=== PATIENT | male | born 1965 | race Caucasian/White ===

== ENCOUNTER 2018-01-27 09:57 | Outpatient (CLI) | payer BC ==
[~2018-01-27] VITALS: Ht 203.2 cm; Wt 159.1 kg
--- NOTE | ~2018-01-27 | HEMODYNAMI ---
PATIENT:JULIANNE SHETH MEDICAL RECORD: [id number] : 63 LOCATION:[facility] ADMISSION DATE: 01/27/18 Generatedon:01/27/201813:19 Patient name: JULIANNE SHETH Patient #: [id number] SSN: : 1965 Date of study: 01/27/2018 Page: Of Hemodynamic Procedure Report Patient Data Patient Demographics Procedure consent was obtained First Name: JULIANNE Gender: Male Last Name: DOMENIC : 1965 Patient #: [id number] Age: 52 year(s) Race: Unknown Additional ID: [id number] Contact details Address: [address] [place] [address] State: [place] City: [place] Zip code: [address] Past Medical History Allergies: No known allergies Admission Admission Data Admission Date: 01/27/2018 Admission Time: 9:57 Height (in.): 79.92 BSA: 2.92 (m2) Height (cm.): 203 BMI: 38.58 (kg/m2) Weight (lbs.): 350.54 Weight (kg.): 159 Lab Results Lab Result Date: 01/27/2018 Lab Result Time: 0:00 Biochemistry Name Units Result Min Max BUN mg/dl 10 --(-*--)-- 7 18 Creatinine mg/dl 1.2 --(---*)-- 0.6 1.3 CBC Name Units Result Min Max Hemoglobin g/dl 12.6 -*(----)-- 13.5 17.5 Procedure Procedure Types Cath Procedure Diagnostic Procedure LHC LHC w/Coronaries Procedure Description Procedure Date Procedure Date: 01/27/2018 Procedure Start Time: 13:03 Procedure End Time: 13:14 Procedure Staff Name Function Bartolo Fitch MD Performing Physician Barby Lopez RT Monitor Jasbir Chappell RN Nurse Elaine Reese RT Scrub Procedure Data Cath Procedure Fluoroscopy Diagnostic fluoroscopy Total fluoroscopy Time: 2.6 time: 2.6 min min Diagnostic fluoroscopy Total fluoroscopy dose: 973 dose: 973 mGy mGy Contrast Material Contrast Material Type Amount (ml) Isovue 300 76 Entry Location Entry Primary Successful Side Size Upsize Upsize Entry Closure Succes sful Closure Location (Fr) 1 (Fr) 2 (Fr) Remarks Device Remarks Femoral Right 5 Fr Exoseal artery Estimated blood loss: 10 ml Diagnostic catheters Device Type Used For End Catheter Placement MULTIPACK JL 4.0 5Fr Procedure catheter MULTIPACK 3DRC 5Fr Procedure catheter MULTIPACK Pigtail 5 Fr Procedure catheter Procedure Complications No complications Procedure Medications Medication Administration Route Dosage 0.9% NaCl I.V. 100 ml/hr Oxygen etCO2 Nasal cannula 2 l/min Heparin Flush Bag added to field 2 bags (1000units/500ml NS) Lidocaine 2% added to field 20 Versed I.V. 2 mg Fentanyl I.V. 100 mcg Hemodynamics Rest BSA: 2.92 (m2) O2 Consumption: Estimated: 404.57 (ml/min) O2 Consumption indexed : Estimated:138.55 (ml/min/m) Heart Rate: 122 (bpm) Pressure Samples Time Site Value (mmHg) Purpose Heart Use Rate(bpm) 13:11 LV 119/12,17 Snapshot 122 Gradients Valve Time Site Site Mean SEP/DFP Peak To Heart Use 1 2 (mmHg) (sec/min) Peak Rate (mmHg) (bpm) Aortic 13:12 LV AO 103 Snapshots Pre Cath Intra NCS Post Cath Vital Signs Time Heart Resp SPO2 etCO2 NIBP (mmHg) Rhythm Pain Sedation Rate (ipm) (%) (mmHg) Status Level (bpm) 12:55:47 98 15 100 33.2 131/104(118) NSR 0 (11) 10(A) , No pain 12:59:55 93 14 98 40 134/102(113) NSR 0 (11) 10(A) , No pain 13:04:02 96 16 98 40 129/95(109) NSR 0 (11) 10(A) , No pain 13:08:08 96 16 100 36.2 131/96(106) NSR 0 (11) 9(A) , No pain 13:13:07 94 16 99 37.7 126/94(112) NSR 0 (11) 9(A) , No pain Medications Time Medication Route Dose Verified Delivered Reason Notes Eff ectiveness by by 12:51:02 0.9% NaCl I.V. 100 Jasbir Jasbir Per ml/hr Misti Chappell physician RN RN 12:51:15 Oxygen etCO2 2 Jasbir Jasbir Per Nasal l/min Misti Chappell physician cannula RN RN 12:51:27 Heparin Flush added 2 Jasbir Jasbir used for Bag to bags Misti Chappell procedure (1000units/500ml field RN RN NS) 12:51:37 Lidocaine 2% added 20ml Jasbir Jasbir for local to vial Lorigan Lorigan anesthetic field RN RN 12:54:16 Versed I.V. 2 mg Jasbir Jasbir for Lorigan Lorigan sedation RN RN 12:54:39 Fentanyl I.V. 100 Jasbir Jasbir for mcg Lorigan Lorigan sedation RN network systems integrator Log Time Note 12:31:39 Patient Height : 79.92 inches 12:31:43 Patient Weight : 350.54 lbs 12:32:37 Lab Result : Hemoglobin 12.6 g/dl 12:32:37 Lab Result : Creatinine 1.2 mg/dl 12:32:37 Lab Result : BUN 10 mg/dl 12:33:07 Diagnostic Cath status Elective 12:33:09 Elaine Reese RT(R) sent for patient. Start room use. 12:33:10 Time tracking: Regular hours (M-F 7:00 - 5:00) 12:33:15 Plan of Care:Hemodynamics will remain stable., Cardiac rhythm will remain stable., Comfort level will be maintained., Respiratory function will remain adequate., Patient/ family verbilizes understanding of procedure., Procedure tolerated without complication., Recovers from procedure without complications.. 12:38:37 Patient received from Pre/Post Procedure Room to [facility] 2 Alert and oriented. Tansferred to table in Supine position. 12:38:39 Warm blankets applied, and jael hugger turned on for patient comfort. 12:38:39 Correct patient and procedure confirmed by team. 12:38:40 Signed procedure consent form obtained from patient. 12:38:41 ECG and BP/O2 sat monitors applied to patient. 12:38:42 Full Disclosure recording started 12:50:11 H&P Date Dictated: 01/17/2018 Within 30 days and on chart., H&P Addendum completed by physician on day of procedure. (MUST COMPLETE FOR ALL OUTPATIENTS). 12:50:13 Pre-procedure instructions explained to patient. 12:50:14 Family in waiting room. 12:50:16 Patient NPO since Midnight. 12:50:30 Patient allergic to No known allergies 12:50:34 Is the patient allergic to Iodine/contrast media? No. 12:50:36 Was the patient premedicated? Yes 12:50:37 Is patient on blood thinner?Yes 12:50:49 Patient diabetic? No. 12:51:02 0.9% NaCl 100 ml/hr I.V. was administered by Jasbir Chappell RN; Per physician; 12:51:15 Oxygen 2 l/min etCO2 Nasal cannula was administered by Jasbir Chappell RN; Per physician; 12:51:25 Snore? No 12:51:27 Heparin Flush Bag (1000units/500ml NS) 2 bags added to field was administered by Jasbir Chappell RN; used for procedure; 12:51:27 Sleep apnea? No 12:51:34 Patient pain scale 0/10 ?. 12:51:37 Lidocaine 2% 20ml vial added to field was administered by Jasbir Chappell RN; for local anesthetic; 12:51:42 IV patent on arrival in left forearm with 0.9% NaCl at [facility]. 12:51:46 Lab results completed and on chart. 12:51:49 Right groin area was prepped with chlora-prep and draped in sterile fashion 12:51:51 Alarms reviewed by R. N. 12:51:51 Sharps counted by scrub and verified by R.N. 12:51:52 Physician paged 12:51:53 Physician arrived 12:51:53 --------ALL STOP TIME OUT------ 12:51:54 Final Timeout: patient, procedure, and site verified with staff and physician. All members of the team are in agreement. 12:51:56 Right groin site verified by team. 12:52:01 Physical assessment completed. ASA score P 2 - A patient with mild systemic disease as per Bartolo Fitch MD. 12:52:07 Sedation plan: IV Moderate Sedation Medication:Versed, Fentanyl 12:52:13 Use device set Femoral Dx 12:52:14 Bag Decanter (2002S) opened to sterile field. 12:52:15 ACIST Syringe (09198) opened to sterile field. 12:52:16 Medline Cath Pack ([id number]) opened to sterile field. 12:52:16 DIAGNOSTIC WIRE .035 260cm J wire (351917) opened to sterile field. 12:52:17 ACIST Hand Control (49917) opened to sterile field. 12:52:18 ACIST Manifold (11409) opened to sterile field. 12:52:18 DIAGNOSTIC Multipack 5Fr catheter set ([id number]) opened to sterile field. 12:52:19 Tegaderm 4 x 4 (1626W) opened to sterile field. 12:52:19 PERCUTANEOUS ENTRY 19GA needle opened to sterile field. 12:52:22 SHEATH Prelude 5Fr 0.035 ([id number]-7C-12-035) opened to sterile field. 12:54:16 Versed 2 mg I.V. was administered by Jasbir Chappell RN; for sedation; 12:54:39 Fentanyl 100 mcg I.V. was administered by Jasbir Chappell RN; for sedation; 12:54:46 Vital chart was started 12:55:27 Zero performed for pressure channel P1 13:03:12 Procedure started. 13:03:25 Local anesthetic to right femoral artery with Lidocaine 2% by Bartolo Fitch MD.INITIAL ACCESS ONLY 13:03:35 A 5 Fr sheath was inserted into the Right Femoral artery 13:06:03 A MULTIPACK JL 4.0 5Fr catheter was advanced over the wire and used for Procedure. 13:06:26 LCA angiography performed. 13:07:38 Catheter removed. 13:07:45 A MULTIPACK 3DRC 5Fr catheter was advanced over the wire and used for Procedure. 13:09:28 RCA angiography performed. 13:09:30 Catheter removed. 13:09:38 A MULTIPACK Pigtail 5 Fr catheter was advanced over the wire and used for Procedure. 13:09:41 LV gram done using QUIJANO 13:12:32 EF : 15 % 13:12:34 Catheter removed. 13:12:50 Sheath removed intact; hemostasis achieved with Exoseal to the Right Femoral artery. 13:12:55 EXOSEAL 5Fr (EX500) opened to sterile field. 13:12:58 Procedure ended.(Physican Out) 13:13:10 Fluoroscopy time 02.60 minutes. 13:13:18 Fluoroscopy dose: 973 mGy 13:13:18 Flurop Dose total: 973 13:13:25 Contrast amount:Isovue 300 76ml. 13:13:26 Sharps counted by scrub and verified by R.N. 13:13:28 Insertion/operative site no bleeding no hematoma. 13:13:32 Post right femoral artery:stable 13:13:37 Post-procedure physical assessment completed. ASA score P 2 - A patient with mild systemic disease as per Bartolo Fitch MD. 13:13:40 Post procedure rhythm: unchanged. 13:13:43 Estimated blood loss: 10 ml 13:13:52 Procedure and supply charges have been captured, reviewed, submitted and are correct. 13:14:14 Procedure Complication : No complications 13:14:18 Vital chart was stopped 13:14:18 See physician's report for complete and final results. 13:14:20 Report given to Pre/Post Procedure Room. 13:14:24 Patient transfered to Pre/Post Procedure Room with Stretcher. 13:14:26 Procedure ended. 13:14:26 Full Disclosure recording stopped 13:17:46 End room use (Document Last) Device Usage Item Name Manufacture Quantity Catalog Number Hospital Part Current M inimal Lot# / Charge Number Stock Stock Serial# Code Bag Decanter Microtek 1 [id number] [id number] [id number] 5 () [employer] Inc. ACIST Syringe Acist 1 83338 393289 084094 139390 2 0 (18504) [employer] Medline Cath Cardinal 1 [id number] 956226 36781 939540 5 Pack Health ([id number]) DIAGNOSTIC WIRE [address] Abdul[facility]iz 1 770223 144030 883130 909883 3 0 .035 260cm J wire (697888) ACIST Hand Acist 1 44954 556868 526521 504898 5 Control (85490) [employer] ACIST Manifold Acist 1 91222 104667 224050 793002 5 (69205) [employer] DIAGNOSTIC Cardinal 1 [id number] 810463 22924 765635 3 0 Multipack 5Fr Health catheter set (SZ1500) Tegaderm 4 x 4 3M 1 1626W 035756 829086 377214 5 (1626W) PERCUTANEOUS Cook Medical 1 Y99690 035114 932892 5 ENTRY 19GA needle SHEATH Prelude Merit 1 [id number] 823429 013761 107050 5 5Fr 0.035 Medical ([id number]-2U-87-035) MULTIPACK JL Cardinal 1 [id number] 5 4.0 5Fr Health catheter MULTIPACK 3DRC Cardinal 1 615422 5 5Fr catheter Health MULTIPACK Cardinal 1 859006 5 Pigtail 5 Fr Health catheter EXOSEAL 5Fr Cardinal 1 EX500 063826 181473 442742 1 0 (EX500) Health Signature Audit [place] Stage Time Signature Unsigned Intra-Procedure 01/27/2018 Barby Lopez 1:19:19 PM RT(R) Signatures Monitor : Barby Lopez Signature : RT Date : Time : [address] [address]
[2018-01-27] MEDS ORDERED: FUROSEMIDE20 MG PO (10:27)
[2018-01-27] MEDS ORDERED: TOPROL XL50 MG PO (10:28)
[2018-01-27] MEDS ORDERED: ELIQUIS5 MG PO (10:28)
[2018-01-27 10:35] VITALS: BP 137/109; Ht 203.2 cm; Wt 159.1 kg
[2018-01-27 10:54] LABS: BASOPHILS 0.5 % (0-2); EOSINOPHILS 1.3 % (0-7); HEMATOCRIT 40.3 % (42.0-54.0); HEMOGLOBIN 12.6 g/dL (13.5-17.5); IMMATURE GRANULOCYTES 0.1 % (0-5); LYMPHOCYTES 9.8 % (15-50); MCH 24.7 pg (26.0-34.0); MCHC 31.3 g/dL (31.0-37.0); MEAN PLATELET VOLUME 9.9 fL (7.4-10.4); MONOCYTES 8.9 % (2-11); NEUTROPHILS 79.4 % (40-80); PLATELET COUNT 196 10x3/uL (130-400); RDW 18.1 % (11.5-14.5); WBC 7.6 10x3/uL (4.8-10.8)
[2018-01-27 11:08] LABS: CALCIUM 8.9 mg/dL (8.5-10.1); CARBON DIOXIDE 24.7 mmol/L (21.0-32.0); CREATININE - SERUM 1.2 mg/dL (0.6-1.3); POTASSIUM - SERUM 3.7 mmol/L (3.5-5.1)
== END 2018-01-27 16:00 | disposition home or self-care (01) ==
LOC: D.CATH 09:57
PROVIDERS: Internal Medicine Cardiovascular Disease
DX: I42.9 Cardiomyopathy, unspecified (principal); Z01.812 Encounter for preprocedural laboratory examination